=== PATIENT | male | born 1995 | race Caucasian/White ===

== ENCOUNTER → 2017-04-11 | Outpatient (CLI) | payer SELFPAY ==
--- NOTE | 2017-04-11 19:07 | RADIOLOGY REPORT (SQ) ---
EXAM DESCRIPTION: U/S NON-OB PELVIS LTD W/O DOP COMPLETED DATE/TIME: 04/11/2017 6:40 pm REASON FOR STUDY: OTHER SPECIFIED SOFT TISSUE DISORDERS M79.89 OTHER SPECIFIED SOFT TISSUE DISORDER S COMPARISON: None. TECHNIQUE: Dynamic and static grayscale images acquired of the pelvis via transabdominal approach an d recorded on PACS. Additional selected color Doppler and spectral images recorded. LIMITATIONS: None. FINDINGS: The area of concern in the inner ear upper thigh on the left shows a hypoechoic area measu ring 43 x 36 x 14 mm. This is well-defined and does contain low-level echoes. The corresponding are a in the right thigh was scanned and multiple nodes were seen. IMPRESSION: There is a prominent area decreased echogenicity in the left side medially. This is not appear to represent a hematoma, but that is not excluded. This could represent enlarged lymph node. TECHNICAL DOCUMENTATION: JOB ID: [id number] [employer]- All Rights Reserved
== END ==
LOC: RAD 17:37
PROVIDERS: ATTEND Physician Assistant
DX: M79.89 Other specified soft tissue disorders (principal)
CPT/HCPCS: 76857